=== PATIENT | male | born 1995 ===

== ENCOUNTER 2023-08-07 23:25 | Emergency (ER) | payer OTHER ==
[~2023-08-07] VITALS: Ht 180.3 cm; Wt 112.2 kg
[2023-08-08 00:10] LABS: Red Cell Distribution Width 14.5 % (11.8-14.3)
[2023-08-08 00:12] LABS: Hematocrit 19.7 % (41.0-53.0); Mean Corpuscular Hemoglobin 29.9 pg (28.0-32.0); Mean Corpuscular Hgb Conc. 35.3 g/dL (32.0-36.0); Mean Corpuscular Volume 84.7 fL (80.0-100.0); Red Blood Cells 2.33 10^6/uL (4.5-5.90)
[2023-08-08 00:27] LABS: Alanine Aminotransferase 14 U/L (7-40); Albumin 4.6 g/dL (3.2-4.8); Alkaline Phosphatase 46 U/L (46-116); Aspartate Aminotransferase 9 U/L (13-40); BUN/Creatinine Ratio 21.1 (10.0-20.0); Blood Urea Nitrogen 15 mg/dL (9-23); Calcium 9.1 mg/dL (8.7-10.4); Chloride 107 mmol/L (98-107); Glucose 128 mg/dL (74-106); Potassium 4.4 mmol/L (3.5-5.1); Sodium 140 mmol/L (136-145)
[2023-08-08 00:28] LABS: Bilirubin, Total 0.5 mg/dL (0.2-1.0); Total Protein 7.3 g/dL (5.7-8.2)
[2023-08-08 00:30] LABS: Anion Gap 6 (5-15); Carbon Dioxide 27 mmol/L (20-30)
[2023-08-08 00:40] LABS: White Blood Cell 0.5 10^3/uL (4.4-10.8)
[2023-08-08 00:41] LABS: Band Neutrophils % (manual) 0; Basophils % (manual) 0 (0.0-2.0); Blast Cells 0; Eosinophils % (manual) 0 (0-7); Metamyelocytes % 0; Myelocytes % 0; Promyelocytes % 0; Reactive Lymphocytes 0
[2023-08-08 01:19] VITALS: BP 156/67; PULSE 79; RESP 16; TEMP 98; O2SAT 98
[2023-08-08 01:39] LABS: % Iron Saturation 94.3 % (20-55)
[2023-08-08 01:56] LABS: Lymphocytes % (manual) 85 (10.0-50.0); Monocytes % (manual) 9 (0-12)
[2023-08-08 01:57] LABS: Platelet Estimate Decreased
[2023-08-08 02:56] LABS: COVID19 ANTIGEN SOFIA FIA NEGATIVE (NEGATIVE); Rapid Influenza A Negative (Negative)
[2023-08-08 02:57] LABS: Rapid Influenza B Negative (Negative)
[2023-08-08 07:51] LABS: Ferritin 723.8 ng/mL (22-322)
[2023-08-10 11:58] LABS: Folate (Folic Acid) 11.32 ng/mL (>5.38)
== END 2023-08-08 01:23 | disposition short-term general hospital (02) ==
LOC: ER 23:25
DX: D61.818 Other pancytopenia (principal); Z20.822 Contact with and (suspected) exposure to COVID-19
CPT/HCPCS: 36415; 80053; 82607; 82728; 82746; 83540; 83550; 83605; 83615; 85007; 85027; 85045; 86850; 86900; 86901; 87426; 87804